=== PATIENT | male | born 1985 | race Two or more races ===

== ENCOUNTER 2018-06-09 23:33 | Emergency (ER) | payer MEDICAID ==
[~2018-06-09] VITALS: Ht 180.3 cm; Wt 81.6 kg
[2018-06-10 01:54] LABS: ETHANOL 114 MG/DL (0-0)
--- NOTE | 2018-06-10 02:00 | NUR ---
PATIENT TOLERATED MEAL WITH NO N/V NOTED
[2018-06-10 02:07] LABS: ACETAMINOPHEN < 2.0 ug/mL (10-30)
[2018-06-10] MEDS ORDERED: IV NORMAL SALINE 1000 ML BAG IV ONE (02:30)
[2018-06-10 02:34] LABS: BASOPHILS % (AUTO) 0.6 % (0.0-2.0); EOSINOPHILS # (AUTO) 0.1 K/uL (0.0-0.7); EOSINOPHILS % (AUTO) 1.1 % (0.0-7.0); HEMATOCRIT 40.5 % (36.7-47.1); HEMOGLOBIN 13.6 g/dL (12.5-16.3); LYMPHOCYTES # (AUTO) 2.4 K/uL (20.0-40.0); LYMPHOCYTES % (AUTO) 31.3 % (20.5-51.5); MEAN CORPUSCULAR HEMOGLOBIN 31.1 uug (23.8-33.4); MEAN CORPUSCULAR HGB CONC 34 g/dL (32.5-36.3); MEAN CORPUSCULAR VOLUME 92.6 fL (73.0-96.2); MONOCYTES # (AUTO) 0.7 K/uL (2.0-10.0); MONOCYTES % (AUTO) 9.6 % (0.0-11.0); NEUTROPHILS # (AUTO) 4.3 K/uL (1.8-8.9); NEUTROPHILS % (AUTO) 57.4 % (38.5-71.5); PLATELET COUNT (AUTO) 324 K/uL (152-348); RED BLOOD CELL COUNT(AUTO) 4.37 MIL/uL (4.06-5.63); WHITE BLOOD COUNT (AUTO) 7.5 K/uL (3.6-10.2)
[2018-06-10 02:36] LABS: CREATININE 0.8 mg/dL (0.6-1.3); POTASSIUM 3.3 mmol/L (3.5-5.1)
[2018-06-10 02:46] LABS: BILIRUBIN,DIRECT 0.1 mg/dL (0.0-0.2); BILIRUBIN,TOTAL 0.3 mg/dL (0.2-1.0); TOTAL PROTEIN, SERUM 7.1 g/dL (6.4-8.2)
[2018-06-10 04:23] LABS: *AMPHETAMINE, URINE NEGATIVE (NEGATIVE); *BARBITURATE, URINE NEGATIVE (NEGATIVE); *CANNABINOID, URINE NEGATIVE (NEGATIVE); *COCCAINE, URINE NEGATIVE (NEGATIVE); *OPIATE, URINE NEGATIVE (NEGATIVE); *PHENCYCLIDINE SCREEN,URINE NEGATIVE (NEGATIVE)
--- NOTE | 2018-06-10 06:21 | NUR ---
IV removed. Catheter intact and site benign. Pressure and 4x4 gauze applied to site. No bleeding noted.
[2018-06-10 06:32] VITALS: BP 135/88
--- NOTE | 2018-06-10 06:39 | NUR ---
Patient discharged to home in stable conditon. Written and verbal after care instructions given. Patient verbalizes understanding of instructions. WALKED OUT OF ER WITH STEADY GAIT, NO DISTRESS NOTED
== END 2018-06-10 06:40 | disposition home or self-care (01) ==
LOC: ER 23:38
DX: F10.129 Alcohol abuse with intoxication, unspecified (principal); R07.89 Other chest pain; I10 Essential (primary) hypertension; Y90.5 Blood alcohol level of 100-119 mg/100 ml
CPT/HCPCS: 36415; 71045; 80048; 80076; 80307; 83735; 84484; 85025; 85730; 99284; G0480 ×2; G0481; 70030-TC; A4663; J7030

== ENCOUNTER 2019-04-20 01:25 | Emergency (ER) | payer MEDICAID, OTHER ==
[~2019-04-20] VITALS: Ht 180.3 cm; Wt 79.4 kg
--- NOTE | 2019-04-20 01:50 | NUR ---
Pt walks into ER with c/o intermittent abdominal pain w/nausea for the past month. Pt states he has been binge drinking x 2 months, drinking around 1L vodka/day. Dr. Pascual at bedside for MSE. Pending orders.
[2019-04-20] MEDS ORDERED: HYDROMORPHONE 1 MG/1 ML DISP.SYRIN ONE (02:00)
[2019-04-20] MEDS: IV NORMAL SALINE 1000 ML BAG IV ONE (02:00)
[2019-04-20] MEDS: LORAZEPAM 2 MG/1 ML VIAL IV ONE ×2 (02:00→08:59)
[2019-04-20] MEDS ORDERED: ONDANSETRON 4 MG/2 ML VIAL ONE ×2 (02:00→08:53)
[2019-04-20] MEDS ORDERED: PANTOPRAZOLE SODIUM 40 MG VIAL ONE (02:01)
[2019-04-20] MEDS ORDERED: LORAZEPAM 2 MG/1 ML VIAL ONE ×2 (02:01→08:53)
[2019-04-20] MEDS: ONDANSETRON 4 MG/2 ML VIAL IV ONE ×2 (02:02→08:59)
[2019-04-20] MEDS: HYDROMORPHONE 1 MG/1 ML DISP.SYRIN IV ONE (02:04)
[2019-04-20] MEDS: PANTOPRAZOLE SODIUM 40 MG VIAL IV ONE (02:06)
[2019-04-20 02:23] LABS: BASOPHILS # (AUTO) 0.1 K/uL (0.0-8.0); BASOPHILS % (AUTO) 2.1 % (0.0-2.0); CREATININE 0.9 mg/dL (0.6-1.3); EOSINOPHILS # (AUTO) 0.1 K/uL (0.0-0.7); EOSINOPHILS % (AUTO) 1.8 % (0.0-7.0); HEMATOCRIT 38.7 % (36.7-47.1); HEMOGLOBIN 13.1 g/dL (12.5-16.3); LYMPHOCYTES # (AUTO) 0.7 K/uL (20.0-40.0); MEAN CORPUSCULAR HGB CONC 34 g/dL (32.5-36.3); MEAN CORPUSCULAR VOLUME 97.4 fL (73.0-96.2); MONOCYTES # (AUTO) 0.7 K/uL (2.0-10.0); MONOCYTES % (AUTO) 17.9 % (0.0-11.0); NEUTROPHILS # (AUTO) 2.4 K/uL (1.8-8.9); NEUTROPHILS % (AUTO) 60.2 % (38.5-71.5); PLATELET COUNT (AUTO) 203 K/uL (152-348); POTASSIUM 3.6 mmol/L (3.5-5.1); RED BLOOD CELL COUNT(AUTO) 3.98 MIL/uL (4.06-5.63)
[2019-04-20 02:29] LABS: BILIRUBIN,DIRECT 0.2 mg/dL (0.0-0.2); BILIRUBIN,TOTAL 0.6 mg/dL (0.2-1.0); TOTAL PROTEIN, SERUM 8.1 g/dL (6.4-8.2)
--- NOTE | 2019-04-20 03:48 | NUR ---
Pt refused in and out catheter. Pt was able to stand up & provide urine sample. Specimen sent to lab.
--- NOTE | 2019-04-20 04:03 | NUR ---
Pt to be transferred to [facility], who will arrange for transportation. Pt is resting in bed comfortably. Vital signs stable. Respirations even + unlabored. Pt signed transfer acknowledgment form.
--- NOTE | 2019-04-20 04:07 | NUR ---
Patient to be transferred to [facility] for pancreatitis. Accepting MD is Dr. Foster.
[2019-04-20 04:33] LABS: *BILIRUBIN,URIN NEGATIVE (NEGATIVE); *BLOOD, URINE 1+ (NEGATIVE); *CLARITY,URINE CLEAR (CLEAR); *COLOR,URINE YELLOW (YELLOW); *KETONES,URINE 1+ (NEGATIVE); LEUKOCYTE ESTERASE ,URINE NEGATIVE (NEGATIVE); NITRITE, URINE NEGATIVE (NEGATIVE); PH,URINE 6.5 (5.0-8.0); UGLUCOSE NEGATIVE (NEGATIVE)
[2019-04-20 04:47] LABS: BACTERIA,URINE NONE SEEN /HPF (NONE SEEN)
[2019-04-20 04:48] LABS: CALCIUM OXALATE CRYSTALS,UR MODERATE /HPF (NONE SEEN); MUCUS,URINE FEW /LPF (0-FEW); SQUAMOUS EPITHELIAL CELL,UR FEW /HPF (NONE SEEN)
[2019-04-20 04:50] LABS: *AMPHETAMINE, URINE NEGATIVE (NEGATIVE); *BARBITURATE, URINE NEGATIVE (NEGATIVE); *CANNABINOID, URINE NEGATIVE (NEGATIVE); *COCCAINE, URINE NEGATIVE (NEGATIVE); *OPIATE, URINE POSITIVE (NEGATIVE); *PHENCYCLIDINE SCREEN,URINE NEGATIVE (NEGATIVE)
--- NOTE | 2019-04-20 05:21 | NUR ---
Report given to Marilyn PARTIDA. Pt going to [facility] Room 308A. Pt to be picked up by [facility]. ETA 90min.
[2019-04-20 05:38] LABS: EOSINOPHILS % (MANUAL) 3 % (0-8); LYMPHOCYTES % (MANUAL) 19 % (20-40); MONOCYTES % (MANUAL) 14 % (2-10); NEUTROPHILS % (MANUAL) 64 % (42-75)
--- NOTE | 2019-04-20 07:12 | NUR ---
RECEIVED SHIFT REPORT FROM JAQUAN CLEARY. PT RESTING IN BED AT THIS TIME, AWAITING PICK-UP.
--- NOTE | 2019-04-20 09:00 | NUR ---
REPORT GIVEN TO [facility], [id number].
--- NOTE | 2019-04-20 09:04 | NUR ---
Patient Tranfers to outside Facility Physician: DR. RUFFIN Location: [facility]
== END 2019-04-20 09:06 | disposition short-term general hospital (02) ==
LOC: ER 01:28
DX: K85.20 Alcohol induced acute pancreatitis without necrosis or infection (principal); F10.10 Alcohol abuse, uncomplicated; F17.200 Nicotine dependence, unspecified, uncomplicated
CPT/HCPCS: 36415; 71045; 74176; 80048; 80076; 80307; 81000; 81001; 82140; 83690; 84484; 85007; 85025; 85730; 87077; 87086; 93005; 96374; 96375; 96376; 99285; C9113; J1170; J2060 ×2; J2405 ×2; 70030-TC; A4663; C1758; J7030